=== PATIENT | female | born 1985 | race Caucasian/White ===

== ENCOUNTER 2017-03-14 09:04 | Emergency (ER) | payer OTHER ==
[~2017-03-14] VITALS: Ht 152.4 cm; Wt 67.0 kg
[~2017-03-14 09:04] MED LIST: CLOT21CR4 VG; IRON18TA PO; PREN1TAB49 PO
[2017-03-14 09:06] VITALS: Ht 152.4 cm; Wt 67.0 kg
[2017-03-14] MEDS ORDERED: LIDOCAINE/MYLANTA 40 ML BTL PO ONE (10:00)
--- NOTE | 2017-03-14 10:09 | ERD ---
ER Documentation Chief Complaint Date/Time DATE: 03/14/17 TIME: 10:06 Chief Complaint ap x 2 weeks HPI Patient is a 31-year-old female who presents to the ED for concerns of abdominal pain 1 month. Patient states her pain is intermittent in nature. Patient describes the pain to be in her epigastric region as well as in her bilateral lower quadrants. Patient states epigastric pain is only present when she eats. Patient states the pain is often burning in nature. Patient does admit to NSAID use and occasional fried food use. Patient denies any spicy foods. Patient denies any fevers or chills. Patient does admit to one episode of vomiting last night. Patient also reports constipation. She states she has been constipated for the last month. Patient states for the last 3 days she has not had a significant bowel movement. Patient reports passing hard, pellet- like stools yesterday. Patient states she has tried Miralax with no improvement of symptoms. Patient is last menstrual period was 1 week ago. Patient denies any dysuria, frequency, urgency or hematuria. ROS All systems reviewed and are negative except as per history of present illness. Medications Home Meds Active Scripts Magnesium Citrate* (Magnesium Citrate*) 296 Ml Solution, 296 ML PO ONCE, #1 BOTTLE Prov:DAWSON RAGLAND PA-C 03/14/17 Famotidine* (Pepcid*) 20 Mg Tablet, 20 MG PO BID for 30 Days, TAB Prov:DAWSON RAGLAND PA-C 03/14/17 Reported Medications Clotrimazole* (Gyne-Lotrimin 3*) 21 Gm Cream.appl, 21 GM VG 08/25/12 Iron (Iron) 18 Mg Tablet, 18 MG PO 08/25/12 Vits W-Ca,Fe,Fa(<1MG) () 1 Tab Tablet, 1 TAB PO 08/25/12 Allergies Allergies: Coded Allergies: No Known Allergy (Unverified , 12/06/12) PMhx/Soc Medical and Surgical Hx: pt denies Medical Hx, pt denies Surgical Hx Hx Alcohol Use: No Hx Substance Use: No Hx Tobacco Use: No Smoking Status: Never smoker Physical Exam Vitals Vital Signs Date Time Temp Pulse Resp B/P Pulse Ox O2 Delivery O2 Flow Rate FiO2 03/14/17 12:36 71 119/68 03/14/17 09:06 98.1 68 18 188/66 99 Physical Exam GENERAL: Well-developed, well-nourished female. Appears in no acute distress. HEAD: Normocephalic, atraumatic. EYES: Pupils are equally reactive bilaterally. EOMs grossly intact. No conjunctival erythema. ENT: Moist mucous membranes. No uvula deviation. No kissing tonsils. NECK: Supple. No meningismus. Normal range of motion of the neck. LUNG: Clear to auscultation bilaterally. No rhonchi, wheezing, rales or coarse breath sounds. HEART: Regular rate and rhythm. No murmurs, rubs or gallops. ABDOMEN: No scars, ecchymosis or rashes noted. Soft and nondistended. Tender to palpation in the epigastric region. Positive bowel sounds in all four quadrants. No rebound tenderness, no guarding. (-) McBurney's point tenderness. No CVA tenderness. BACK: No midline tenderness. EXTREMITIES: Equal pulses bilaterally. No peripheral clubbing, cyanosis or edema. No unilateral leg swelling. NEUROLOGIC: Alert and oriented. Moving all four extremities without any difficulty. Normal speech. Steady gait. SKIN: Normal color. Warm and dry. No rashes or lesions. Results 24 hrs Laboratory Tests Test 03/14/17 09:46 Urine Color YELLOW Urine Clarity CLEAR Urine pH 5.0 Urine Specific [place] 1.023 Urine Ketones NEGATIVEmg/dL Urine Nitrite NEGATIVEmg/dL Urine Bilirubin NEGATIVEmg/dL Urine Urobilinogen NEGATIVEmg/dL Urine Leukocyte Esterase NEGATIVELeu/ul Urine Hemoglobin NEGATIVEmg/dL Urine Glucose NEGATIVEmg/dL Urine Total Protein NEGATIVEmg/dl Current Medications Medications (Trade) Dose Ordered Sig/Radha Route PRN Reason Start Time Stop Time Status Last Admin Dose Admin Miscellaneous Medication (Gi Cocktail (2)) 40 ml ONCE ONCE PO 03/14/17 10:00 03/14/17 10:01 DC 03/14/17 10:09 Procedures/MDM ED COURSE: The patient was stable throughout ED course. I kept the patient and/or family informed of laboratory and diagnostic imaging results throughout the ED course. DIAGNOSTIC IMAGING: Read by radiologist. Patient: VERONA BRADSHAW : 1985 Age: 31 Sex: F MR #: [id number] DOS: 03/14/1759 Ordering MD: DAWSON RAGLAND PA-C Location: [facility] Room/Bed: PROCEDURE: XR Abdomen. CLINICAL INDICATION: Abdominal pain TECHNIQUE: AP abdomen x-ray. COMPARISON: None. FINDINGS: The bowel gas pattern is normal. The colon is fecal filled. There is no evidence of obstruction. There are no abnormal calcifications overlying the urinary tracts. The osseus structures are unremarkable. RPTAT: AA IMPRESSION: Fecal filled colon. .Christopher Aponte MD, Date Time Electronically viewed and signed by .Christopher Aponte MD, MD on 03/14/2017 12: 03 .S/ CC: DAWSON RAGLAND PA-C PROCEDURES: None. MEDICATIONS GIVEN: GI cocktail. Patient tolerated medication well with no adverse reactions. MEDICAL DECISION MAKING: Patient is a 31-year-old female who presents with abdominal pain 1 month. Patient reports epigastric pain as well as lower abdominal pain. Patient states she does take NSAIDs frequently. Patient also reports a history of constipation. Patient states for the last 3 days she does not have significant bowel movement, she is only pass hard pellets. Vital signs were reviewed. Patient is afebrile. Urine test was negative. UA showed no signs of acute infection or hematuria. KUB showed Fecal filled colon. Patient was advised to increase her fiber and H2O intake. Patient will be given a prescription for mag citrate. In addition patient was advised to follow-up with GI specialist for epigastric pain. At this time, the patient's presentation is most consistent with epigastric pain and constipation. Low suspicion for ACS, lower lobe pneumonia, bowel obstruction, bowel perforation, cholecystitis, pancreatitis, splenic rupture, UTI, pyelonephritis, nephrolithiasis, appendicitis, or ectopic . Unable to rule out H pylori or peptic ulcer disease at this time. Patient likely will benefit from an endoscopy versus H pylori testing. Patient advised to discuss this with her primary care physician as well as obtaining a referral to GI specialist. Referral information provided. PRESCRIPTIONS: Pepcid, mag citrate DISCHARGE: At this time, patient is stable for discharge and outpatient management. Patient was given a copy of all studies obtained today. I have instructed the patient to follow-up with his/her primary care physician in 1-2 days. I have instructed the patient to promptly return to the ER at any time for any new or worsening symptoms including increased pain, nausea, vomiting, diarrhea, fever, weakness or LOC. The patient and/or family expressed understanding of and agreement with this plan. All questions were answered. Home care instructions were provided. Disclaimer: Inadvertent spelling and grammatical errors are likely due to EHR/ dictation software use and do not reflect on the overall quality of patient care. Also, please note that the electronic time recorded on this note does not necessarily reflect the actual time of the patient encounter. Departure Diagnosis: Primary Impression: Constipation Constipation type: unspecified constipation type Qualified Code: K59.00 - Constipation, unspecified constipation type Additional Impression: Epigastric pain Condition: Stable Patient Instructions: Constipation (Adult), Epigastric Pain (Uncertain Cause) Referrals: EMIGDIO PEÑALOZA MD, NAGARAJ M MD CHHABLANI, RAHUL K. CHITAYAT, RON DESAI,ASHLYN GALE,MAHESH GALINDO,MAHESH HINOJOSA,LIGIA ROWE [facility] YOU HAVE RECEIVED A MEDICAL SCREENING EXAM AND THE RESULTS INDICATE THAT YOU DO NOT HAVE A CONDITION THAT REQUIRES URGENT TREATMENT IN THE EMERGENCY DEPARTMENT. FURTHER EVALUATION AND TREATMENT OF YOUR CONDITION CAN WAIT UNTIL YOU ARE SEEN IN YOUR DOCTORS OFFICE WITHIN THE NEXT 1-2 DAYS. IT IS YOUR RESPONSIBILITY TO MAKE AN APPOINTMENT FOR FOLOW-UP CARE. IF YOU HAVE A PRIMARY DOCTOR --you should call your primary doctor and schedule an appointment IF YOU DO NOT HAVE A PRIMARY DOCTOR YOU CAN CALL OUR PHYSICIAN REFERRAL HOTLINE AT IF YOU CAN NOT AFFORD TO SEE A PHYSICIAN YOU CAN CHOSE FROM THE FOLLOWING [facility] [address] [facility]. [facility] [address] [facility] [place] [address] [facility] [address] [facility] [address] [facility]. [facility] [address] [facility]. [facility] YOU HAVE RECEIVED A MEDICAL SCREENING EXAM AND THE RESULTS INDICATE THAT YOU DO NOT HAVE A CONDITION THAT REQUIRES URGENT TREATMENT IN THE EMERGENCY DEPARTMENT. FURTHER EVALUATION AND TREATMENT OF YOUR CONDITION CAN WAIT UNTIL YOU ARE SEEN IN YOUR DOCTORS OFFICE WITHIN THE NEXT 1-2 DAYS. IT IS YOUR RESPONSIBILITY TO MAKE AN APPOINTMENT FOR FOLOW-UP CARE. IF YOU HAVE A PRIMARY DOCTOR --you should call your primary doctor and schedule and appointment IF YOU DO NOT HAVE A PRIMARY DOCTOR YOU CAN CALL OUR PHYSICIAN REFERRAL HOTLINE AT . IF YOU CAN NOT AFFORD TO SEE A PHYSICIAN YOU CAN CHOSE FROM THE FOLLOWING [facility]: [facility] [place] [address] [place] [address] [facility] [address] [place] [address] [facility] [address] [place] [address] Additional Instructions: Avoid ibuprofen, spicy foods, fried foods, alcohol. You may need an endoscopy on an outpatient basis. Speak to your doctor about H pylori testing. For your constipation, increase fiber intake and increase H2O intake. Call your primary care doctor TOMORROW for an appointment during the next 1-2 days.See the doctor sooner or return here if your condition worsens before your appointment time. DAWSON RAGLAND PA-C Mar 14, 2017 10:09
[2017-03-14 11:09] LABS: ADD UMIC NO; UR ASCORBIC ACID NEGATIVE (NEGATIVE); UR BILIRUBIN (Dip) NEGATIVE (NEGATIVE); UR BLOOD (Dip) NEGATIVE (NEGATIVE); UR CLARITY CLEAR (CLEAR); UR COLOR YELLOW (YELLOW); UR GLUCOSE (Dip) NEGATIVE (NEGATIVE); UR KETONES (Dip) NEGATIVE (NEGATIVE); UR LEUKOCYTE ESTERASE (Dip) NEGATIVE Leu/ul (NEGATIVE); UR NITRITE (Dip) NEGATIVE (NEGATIVE); UR SPECIFIC GRAVITY (Dip) 1.023 (1.003-1.030); UR TOTAL PROTEIN (Dip) NEGATIVE (NEGATIVE); UR UROBILINOGEN (Dip) NEGATIVE (NEGATIVE)
--- NOTE | 2017-03-14 12:04 | RADRPT ---
PROCEDURE: XR Abdomen. CLINICAL INDICATION: Abdominal pain TECHNIQUE: AP abdomen x-ray. COMPARISON: None. FINDINGS: The bowel gas pattern is normal. The colon is fecal filled. There is no evidence of obstruction. Th ere are no abnormal calcifications overlying the urinary tracts. The osseus structures are unremarkable. RPTAT: AA IMPRESSION: Fecal filled colon. .Christopher Aponte MD, MD Date Time Electronically viewed and signed by .Christopher Aponte MD, on 03/14/2017 12:03 .S/
[2017-03-14] MEDS ORDERED: FAMO-96 PO (12:08)
[2017-03-14] MEDS ORDERED: MAGN296S40 PO (12:23)
[2017-03-14 12:36] VITALS: BP 119/68; PULSE 71
== END 2017-03-14 12:37 | disposition home or self-care (01) ==
LOC: FTE 09:04
DX: K59.00 Constipation, unspecified (principal)
CPT/HCPCS: 74000; 81003; Z7502; Z7610

== ENCOUNTER 2017-11-23 21:03 | Inpatient (IN) | END 2017-11-27 12:20 | disposition home or self-care (01) | DRG 766 ==